=== PATIENT | female | born 1960 | race Caucasian/White ===

== ENCOUNTER 2021-03-13 05:52 | Emergency (ER) | payer OTHER ==
[~2021-03-13] VITALS: Ht 160 cm; Wt 50.8 kg
[2021-03-13] MEDS ORDERED: OXYBUTYNIN 5 MG5 M2 PO (06:26)
[2021-03-13] MEDS ORDERED: LAMOTRIGINE250 MG PO (06:26)
[2021-03-13] MEDS ORDERED: COZAAR 25 MG TA25 M1 PO (06:27)
[2021-03-13] MEDS ORDERED: TOPROL XL25 MG PO (06:27)
[2021-03-13] MEDS ORDERED: LIPITOR80 MG PO (06:28)
[2021-03-13] MEDS ORDERED: DRIZALMA SPRINK60 MG PO (06:28)
[2021-03-13 07:24] VITALS: BP 141/75
== END 2021-03-13 07:26 | disposition home or self-care (01) ==
LOC: M.ERS 05:52
DX: S01.81XA Laceration without foreign body of other part of head, initial encounter (principal); I10 Essential (primary) hypertension; F32.9 Major depressive disorder, single episode, unspecified; F17.210 Nicotine dependence, cigarettes, uncomplicated; Z79.899 Other long term (current) drug therapy; W01.198A Fall on same level from slipping, tripping and stumbling with subsequent striking against other object, initial encounter; Y93.89 Activity, other specified; Y92.091 Bathroom in other non-institutional residence as the place of occurrence of the external cause; Y99.8 Other external cause status